=== PATIENT | female | born 1970 | race Caucasian/White ===

== ENCOUNTER 2018-07-31 11:59 | Emergency (ER) | payer OTHER ==
[2018-07-31 12:10] VITALS: BP 113/73; PULSE 70; TEMP 98; BMI 29.2
--- NOTE | 2018-07-31 13:01 | PDOC ---
History of Present Illness - General Chief Complaint: Toothache Stated Complaint: SWOLLEN FACE Time Seen by Provider: 07/31/18 12:22 History Source: Patient Exam Limitations: No Limitations Past History - Travel Traveled outside of the country in the last 30 days: No Close contact w/someone who was outside of country & ill: No - Past Medical History Allergies/Adverse Reactions: Allergies Allergy/AdvReac Type Severity Reaction Status Date / Time No Known Allergies Allergy Verified 07/31/18 12:10 Home Medications: Ambulatory Orders Amox-Tr/K Cl [Augmentin - 875Mg Tablet] 1 tab PO BID #20 tablet 07/31/18 Ibuprofen 600 mg PO Q6H #30 tablet 07/31/18 COPD: No Diabetes: Yes - Surgical History Cholecystectomy: Yes - Suicide/Smoking/Psychosocial Hx Smoking History: Never smoked Review of Systems - Review of Systems Able to Perform ROS?: Yes Comments:: 07/31/18 12:58 CONSTITUTIONAL: Absent: fever, chills, diaphoresis, generalized weakness, malaise, loss of appetite HEENT: Absent: rhinorrhea, nasal congestion, throat pain, throat swelling, difficulty swallowing, mouth swelling, ear pain, eye pain, visual Changes CARDIOVASCULAR: Absent: chest pain, loss of consciousness, palpitations, irregular heart rate, peripheral edema RESPIRATORY: Absent: cough, shortness of breath, dyspnea with exertion, orthopnea, wheezing, stridor, hemoptysis GASTROINTESTINAL: Absent: abdominal pain, abdominal distension, nausea, vomiting, diarrhea, constipation, melena, hematochezia GENITOURINARY: Absent: dysuria, frequency, urgency, hesitancy, hematuria, flank pain, genital pain MUSCULOSKELETAL: Absent: myalgia, arthralgia, joint swelling SKIN: Present: L facial swelling Absent: rash, itching, pallor HEMATOLOGIC/IMMUNOLOGIC: Absent: easy bleeding, easy bruising, lymphadenopathy, frequent infections ENDOCRINE: Absent: unexplained weight gain, unexplained weight loss, heat intolerance, cold intolerance NEUROLOGIC: Absent: headache, focal weakness or paresthesias, dizziness, unsteady gait, seizure, mental status changes, bladder or bowel incontinence PSYCHIATRIC: Absent: anxiety, depression, suicidal or homicidal ideation, hallucinations. Is the patient limited Danish proficient: No *Physical Exam - Vital Signs Last Vital Signs Temp Pulse Resp BP Pulse Ox 98 F 70 18 113/73 98 07/31/18 12:07 07/31/18 12:07 07/31/18 12:07 07/31/18 12:07 07/31/18 12:07 - Physical Exam Comments: 07/31/18 12:58 GENERAL: Well developed, well nourished. Awake and alert. No acute distress. HEENT: Normocephalic, atraumatic. PERRLA, EOMI. No conjunctival pallor. Sclera are non- icteric. Moist mucous membranes. Oropharynx is clear. Cracked tooth to number 12. Pain to palpation of the L upper buccal mucosa. NECK: Supple. Full ROM. No JVD. Carotid pulses 2+ and symmetric, without bruits. No thyromegaly. No lymphadenopathy. SKIN: Warm and dry. Normal capillary refill. No rashes. No jaundice. NEUROLOGICAL: Alert, awake, appropriate. Cranial nerves 2-12 intact. No deficits to light touch and temperature in face, upper extremities and lower extremities. No motor deficits in the in face, upper extremities and lower extremities. Normoreflexic in the upper and lower extremities. Normal speech. Toes are down- going bilaterally. Gait is normal without ataxia. PSYCHIATRIC: Cooperative. Good eye contact. Appropriate mood and affect. Medical Decision Making - Medical Decision Making 07/31/18 13:08 The patient is a 47-year-old female with no past medical history who presents to the ER today for left-sided facial swelling starting yesterday. Patient states that she has a cracked tooth to the left upper. Denies redness or discharge from the site. She states that the swelling does not hurt. Denies fevers, chills, nausea, vomiting and shortness of breath. A/P: facial swelling On exam patient with a cracked tooth #12 L cheek is mildy swollen with TTP of the upper buccal mucosa Probable dental infection Abx started; pt to see her dentist tomorrow DC home I discussed the physical exam findings, ancillary test results and final diagnoses with the patient. I answered all of the patient's questions. The patient was satisfied with the care received and felt comfortable with the discharge plan and treatment plan. The Patient agrees to follow up with the primary care physician/specialist within 24-72 hours. Return precautions were given. *DC/Admit/Observation/Transfer Diagnosis at time of Disposition: Facial swelling - Discharge Dispostion Disposition: HOME Condition at time of disposition: Stable Decision to Admit order: No - Prescriptions Prescriptions: Amox-Tr/K Cl [Augmentin - 875Mg Tablet] 1 tab PO BID #20 tablet Ibuprofen 600 mg PO Q6H #30 tablet - Referrals - Patient Instructions Printed Discharge Instructions: DI for Tooth Abscess Additional Instructions: You were evaluated for your facial swelling today. It is most likely due to a dental infection given you have a broken tooth. Please take the Augmentin twice a day for one week. Take this medication with food. You may take Motrin 600 mg every 6 hours as needed for pain. You may use warm compresses to the area. Please follow-up with your dentist tomorrow. Return to the ER for fevers, worsening pain or swelling, difficulty breathing, or if you have any changes in your symptoms. - Post Discharge Activity Forms/Work/School Notes: Back to Work
== END 2018-07-31 13:05 | disposition home or self-care (01) ==
LOC: JERFT 11:59
DX: K04.7 Periapical abscess without sinus (principal)
CPT/HCPCS: 99281-25